=== PATIENT | female | born 1960 | race Caucasian/White ===

== ENCOUNTER 2021-09-08 07:58 | Observation (INO) | payer MEDICAID ==
[2021-09-08] VITALS (10 sets, daily range): BP systolic 101–143; BP diastolic 57–70
[~2021-09-08 07:58] MED LIST: APIX5TAB PO; ESCI-8 PO; FURO40TA5 PO; LEVE10006 PO; LEVO300T8 PO; LOPE-198 PO; LORA10TA7 PO; MELO-106 PO; OXYB-66 PO; OXYC10TA48 PO; PREG75CA75 PO; ROSU10TA28 PO; SUMA100T16 PO; TIZA-211 PO; TOPI100T37 PO; TRAZ-185 PO
[2021-09-08] MEDS: CEFAZOLIN SODIUM 1 GM VIAL IVP SCH (09:00)
[2021-09-08 09:31] LABS: BASOPHILS % (AUTO) 0.5 % (0.0-5.0); EOSINOPHILS % (AUTO) 3.1 % (0.0-8.0); HEMATOCRIT 45.6 % (36-48); LYMPHOCYTES % (AUTO) 37.2 % (21.0-51.0); MEAN CORPUSCULAR HEMOGLOBIN 32.1 pg (27.0-33.0); MEAN CORPUSCULAR HGB CONC 33.3 g/dL (32.0-36.0); MEAN CORPUSCULAR VOLUME 96.2 fL (79-99); MONOCYTES % (AUTO) 6.9 % (3.0-13.0); NEUTROPHILS % (AUTO) 52.1 % (40.0-77.0); PLATELET COUNT (AUTO) 148 K/uL (130-400); RED BLOOD CELL COUNT(AUTO) 4.74 MIL/uL (4.00-5.50); RED CELL DISTRIBUTION WIDTH 12.7 % (11.0-15.5); WHITE BLOOD COUNT (AUTO) 6.1 K/uL (4.8-10.8)
[2021-09-08 09:40] LABS: CREATININE 0.9 mg/dL (0.5-1.5)
[2021-09-08 09:41] LABS: POTASSIUM 2.9 mmol/L (3.5-5.1)
[2021-09-08 09:46] LABS: INR 0.94 (0.85-1.15); PROTHROMBIN TIME 10.3 SEC (9.6-11.6)
[2021-09-08 09:48] LABS: PARTIAL THROMBOPLASTIN TIME 28.8 SEC (26.3-35.5)
[2021-09-08] MEDS ORDERED: POTASSIUM CHLORIDE 20MEQ/100ML 100 ML IV PRN (10:30)
[2021-09-08] MEDS ORDERED: LIDOCAINE HCL-MPF 1% 2ML VIAL IV PRN (10:30)
[2021-09-08] MEDS ORDERED: 0.9%NACL 1000ML 1,000 ML IV ONE (10:39)
[2021-09-08] MEDS ORDERED: OXYCODONE HCL 5 MG TAB PO PRN (13:30)
[2021-09-08] MEDS ORDERED: VANCOMYCIN 1G 1 GM in 0.9% NACL 250ML 250 ML IV PRN (13:30)
[2021-09-08] MEDS ORDERED: SUMATRIPTAN SUCCINATE 25 MG TABLET PO PRN (13:30)
[2021-09-08] MEDS ORDERED: LOPERAMIDE HCL 2 MG CAP PO PRN (13:30)
[2021-09-08] MEDS ORDERED: ATORVASTATIN 20 MG TABLET PO SCH (21:00)
[2021-09-08] MEDS ORDERED: MELOXICAM 7.5 MG TABLET PO SCH (21:00)
[2021-09-08] MEDS ORDERED: TRAZODONE HCL 50 MG TAB PO SCH (21:00)
[2021-09-08] MEDS ORDERED: OXYBUTYNIN 5 MG TAB.SR.24H PO SCH (21:00)
[2021-09-08] MEDS: TIZANIDINE HCL 2 MG TABLET PO SCH (21:56)
[2021-09-08] MEDS: LEVETIRACETAM 500 MG TABLET PO SCH (21:56)
[2021-09-08] MEDS: TOPIRAMATE 100 MG TAB PO SCH (21:56)
[2021-09-08] MEDS: PREGABALIN 75 MG CAPSULE PO SCH (21:57)
[2021-09-09 03:32] VITALS: BP 99/59
[2021-09-09 04:14] LABS: CREATININE 0.7 mg/dL (0.5-1.5); POTASSIUM 3.6 mmol/L (3.5-5.1)
[2021-09-09 07:08] VITALS: BP 107/48
[2021-09-09] MEDS ORDERED: BUPIVACAINE/PF 0.25% 30ML VIAL IJ ONE (07:13)
[2021-09-09] MEDS ORDERED: DiphenhydrAMINE HCL 50 MG/ML VIAL ONE (07:13)
[2021-09-09] MEDS ORDERED: LIDOCAINE HCL 1% 10 ML VIAL ONE (07:13)
[2021-09-09] MEDS ORDERED: VANCOMYCIN 1G/250ML KIT 250 ML IV ONE ×2 (07:14→07:15)
[2021-09-09] MEDS ORDERED: MEPERIDINE-PF 25 MG/ML SYG ONE ×2 (08:14→08:35)
[2021-09-09] MEDS ORDERED: MIDAZOLAM HCL 1 MG/ML 2ML VIAL ONE ×2 (08:14→08:35)
[2021-09-09] MEDS ORDERED: IOHEXOL-350 50ML VIAL IV ONE (08:26)
[2021-09-09] MEDS: TOPIRAMATE 100 MG TAB PO SCH (09:00)
[2021-09-09] MEDS: TIZANIDINE HCL 2 MG TABLET PO SCH (09:00)
[2021-09-09] MEDS ORDERED: FUROSEMIDE 40 MG TABLET PO SCH (09:00)
[2021-09-09] MEDS ORDERED: LORATADINE 10 MG TABLET PO SCH (09:00)
[2021-09-09] MEDS: CEFAZOLIN SODIUM 1 GM VIAL IVP SCH (09:00)
[2021-09-09] MEDS ORDERED: LEVOTHYROXINE 150 MCG TABLET PO SCH (09:00)
[2021-09-09] MEDS ORDERED: CITALOPRAM 20 MG TABLET PO SCH (09:00)
[2021-09-09] MEDS ORDERED: ACETAMINOPHEN WITH CODEINE 1 TAB TAB PO PRN (11:00)
[2021-09-09] MEDS: PREGABALIN 75 MG CAPSULE PO SCH (12:20)
[2021-09-09] MEDS: LEVETIRACETAM 500 MG TABLET PO SCH (12:21)
== END 2021-09-09 17:25 | disposition home or self-care (01) ==
LOC: DAH 07:58 → DAHIP 07:59 → 2DH 13:51
PROVIDERS: ADMIT Internal Medicine; ATTEND Internal Medicine
DX: I49.5 Sick sinus syndrome (principal); I48.21 Permanent atrial fibrillation; E87.6 Hypokalemia; E66.01 Morbid (severe) obesity due to excess calories; E89.0 Postprocedural hypothyroidism; G43.909 Migraine, unspecified, not intractable, without status migrainosus; D68.59 Other primary thrombophilia; Z95.0 Presence of cardiac pacemaker; Z79.899 Other long term (current) drug therapy; Z87.891 Personal history of nicotine dependence
CPT/HCPCS: 96361; 96365; 96366; 83735; 84132; 80048 ×2; 85025; 85610; 85730; 36415 ×2; 93005; 33207; 71045; G0378 ×33; J7030; J3480 ×2; C1786; C1898; J1200; J0690; S0020; J2250 ×2; J3370 ×2; J3490; J2175 ×2; Q9967; 99156; 99157

== ENCOUNTER → 2022-02-24 | Outpatient (CLI) | payer MEDICAID | END | disposition home or self-care (01) | LOC: RAH 10:06 | PROVIDERS: ATTEND Internal Medicine Cardiovascular Disease | DX: R22.32 Localized swelling, mass and lump, left upper limb (principal) | CPT/HCPCS: 93971 ==

== ENCOUNTER → 2022-07-25 | Outpatient (CLI) | payer MEDICAID ==
[~2022-07-25] VITALS: Ht 157.5 cm; Wt 128.4 kg
[~2022-07-25] MED LIST changes: +BUTA1CAP53 PO; +CEFU250T87 PO; +CIPR500T10 PO; +METO-408 PO; +POTA10CA85 PO
[2022-07-25 15:48] VITALS: BP 117/71
[2022-07-25 16:29] LABS: BASOPHILS % (AUTO) 0.8 % (0.0-5.0); EOSINOPHILS % (AUTO) 1.8 % (0.0-8.0); HEMATOCRIT 52.3 % (36-48); LYMPHOCYTES % (AUTO) 31.4 % (21.0-51.0); MEAN CORPUSCULAR HEMOGLOBIN 31.4 pg (27.0-33.0); MEAN CORPUSCULAR HGB CONC 33.1 g/dL (32.0-36.0); MEAN CORPUSCULAR VOLUME 94.9 fL (79-99); MONOCYTES % (AUTO) 5.2 % (3.0-13.0); NEUTROPHILS % (AUTO) 60.6 % (40.0-77.0); PLATELET COUNT (AUTO) 156 K/uL (130-400); RED BLOOD CELL COUNT(AUTO) 5.51 MIL/uL (4.00-5.50); RED CELL DISTRIBUTION WIDTH 14.2 % (11.0-15.5); WHITE BLOOD COUNT (AUTO) 6.2 K/uL (4.8-10.8)
[2022-07-25 16:39] LABS: INR 1.07 (0.85-1.15); PROTHROMBIN TIME 11.6 SEC (9.6-11.6)
[2022-07-25 16:40] LABS: PARTIAL THROMBOPLASTIN TIME 35.8 SEC (26.3-35.5)
[2022-07-25 16:41] LABS: CREATININE 0.9 mg/dL (0.5-1.5); POTASSIUM 3.6 mmol/L (3.5-5.1)
== END | disposition home or self-care (01) ==
LOC: DAH 10:00 → EDSTATUS 15:00
PROVIDERS: ATTEND Internal Medicine Cardiovascular Disease
DX: Z01.810 Encounter for preprocedural cardiovascular examination (principal); I49.5 Sick sinus syndrome; I89.0 Lymphedema, not elsewhere classified; I48.91 Unspecified atrial fibrillation; Z53.8 Procedure and treatment not carried out for other reasons; Z79.01 Long term (current) use of anticoagulants; Z88.8 Allergy status to other drugs, medicaments and biological substances; Z88.3 Allergy status to other anti-infective agents; Z91.013 Allergy to seafood
CPT/HCPCS: 36415; 80048; 85025; 85610; 85730; 93005